=== PATIENT | male | born 1955 | race Caucasian/White ===

== ENCOUNTER 2018-06-24 12:31 | Inpatient (IN) ==
[2018-06-24] MEDS ORDERED: Acetaminophen 650 MG RECTAL SUPP RC PRN (16:08)
[2018-06-24] MEDS ORDERED: Acetaminophen 325 MG TABLET PO PRN (16:14)
[2018-06-24] MEDS: *HR* OxyCODONE Immed Rel 5 MG TABLET PO PRN ×2 (17:13→20:18)
[2018-06-25] MEDS: *HR* OxyCODONE Immed Rel 5 MG TABLET PO PRN ×5 (03:33→21:44)
[2018-06-25] MEDS: Furosemide 20 MG TABLET PO SCH (08:11)
[2018-06-25] MEDS: *HR* LORazepam 0.5 MG TABLET PO PRN ×3 (08:11→17:42)
[2018-06-25] MEDS: predniSONE 5 MG TABLET PO SCH (08:11)
[2018-06-25] MEDS: DALIRESP 500MCG PO SCH (08:12)
[2018-06-25] MEDS: Ipratropium/Albuterol Neb 3 ML IH PRN (08:42)
[2018-06-25] MEDS ORDERED: *HR* Morphine Sulfate SR (12 HR) 60 MG TABLET.ER PO SCH (09:00)
[2018-06-25] MEDS: *HR* Morphine Sulfate SR (12 HR) 30 MG TABLET.ER PO SCH ×2 (10:28→21:44)
[2018-06-25] MEDS: Haloperidol Oral Conc 10 MG/5 ML UDC PO PRN ×3 (12:14→21:44)
[2018-06-25] MEDS: Nicotine 21 MG PATCH.TD24 TD SCH (12:52)
[2018-06-25] MEDS ORDERED: *HR* Morphine Sulfate SR (12 HR) 30 MG TABLET.ER PO SCH (21:00)
[2018-06-26] MEDS: Ipratropium/Albuterol Neb 3 ML IH PRN (07:57)
[2018-06-26] MEDS: predniSONE 5 MG TABLET PO SCH (08:18)
[2018-06-26] MEDS: *HR* OxyCODONE Immed Rel 5 MG TABLET PO PRN ×2 (08:18→12:19)
[2018-06-26] MEDS: Furosemide 20 MG TABLET PO SCH (08:18)
[2018-06-26] MEDS: *HR* Morphine Sulfate SR (12 HR) 30 MG TABLET.ER PO SCH (08:43)
[2018-06-26] MEDS: Haloperidol Oral Conc 10 MG/5 ML UDC PO PRN ×2 (08:44→18:13)
[2018-06-26] MEDS: Nicotine 21 MG PATCH.TD24 TD SCH (08:45)
[2018-06-26] MEDS: DALIRESP 500MCG PO SCH (08:47)
[2018-06-26] MEDS: *HR* LORazepam 0.5 MG TABLET PO PRN ×2 (09:50→18:13)
[2018-06-26] MEDS ORDERED: MORPHINE SUL Oral CONC 10 MG/0.5 ML ORAL.SYG SL PRN (16:32)
[2018-06-26] MEDS ORDERED: *HR* OxyCODONE Oral Soln 5 MG/5 ML UD.LIQ PO PRN (17:50)
[2018-06-27] MEDS: *HR* LORazepam 0.5 MG TABLET PO PRN ×2 (00:25→08:55)
[2018-06-27] MEDS: MORPHINE SUL Oral CONC 10 MG/0.5 ML ORAL.SYG SL PRN ×8 (00:26→21:20)
[2018-06-27] MEDS: Haloperidol Oral Conc 10 MG/5 ML UDC PO PRN ×3 (06:12→17:15)
[2018-06-27] MEDS: Nicotine 21 MG PATCH.TD24 TD SCH (08:48)
[2018-06-27] MEDS: Furosemide 20 MG TABLET PO SCH (08:50)
[2018-06-27] MEDS: DALIRESP 500MCG PO SCH (08:56)
[2018-06-27] MEDS: *HR* LORazepam Oral Conc 2 MG/ML PO PRN ×3 (17:04→21:20)
[2018-06-27] MEDS: *HR* Morphine Sulfate SR (12 HR) 30 MG TABLET.ER PO SCH (17:15)
[2018-06-28] MEDS ORDERED: *HR* Morphine Sulfate SR (12 HR) 30 MG TABLET.ER PO SCH
[2018-06-28] MEDS: *HR* Morphine Sulfate SR (12 HR) 30 MG TABLET.ER PO SCH ×3 (00:55→16:10)
[2018-06-28] MEDS: Haloperidol Oral Conc 10 MG/5 ML UDC PO PRN ×3 (00:55→13:42)
[2018-06-28] MEDS: MORPHINE SUL Oral CONC 10 MG/0.5 ML ORAL.SYG SL PRN ×4 (00:56→20:37)
[2018-06-28] MEDS: *HR* LORazepam Oral Conc 2 MG/ML PO PRN ×3 (06:08→16:15)
[2018-06-28] MEDS: Nicotine 21 MG PATCH.TD24 TD SCH (08:50)
[2018-06-28] MEDS: DALIRESP 500MCG PO SCH (08:56)
[2018-06-28] MEDS: Furosemide 20 MG TABLET PO SCH (08:56)
[2018-06-28] MEDS: Ipratropium/Albuterol Neb 3 ML IH PRN (13:56)
[2018-06-28] MEDS: *HR* LORazepam 1 MG TABLET PO PRN (20:37)
[2018-06-29] MEDS: *HR* LORazepam 1 MG TABLET PO PRN ×4 (00:15→14:16)
[2018-06-29] MEDS: *HR* Morphine Sulfate SR (12 HR) 30 MG TABLET.ER PO SCH ×3 (00:15→15:38)
[2018-06-29] MEDS: MORPHINE SUL Oral CONC 10 MG/0.5 ML ORAL.SYG SL PRN ×3 (06:28→14:16)
[2018-06-29 06:53] VITALS: BP 123/76
[2018-06-29] MEDS: Nicotine 21 MG PATCH.TD24 TD SCH (08:26)
[2018-06-29] MEDS: Furosemide 20 MG TABLET PO SCH (08:33)
[2018-06-29] MEDS: DALIRESP 500MCG PO SCH (08:35)
[2018-06-29] MEDS: Haloperidol Oral Conc 10 MG/5 ML UDC PO PRN (14:16)
[2018-06-29] MEDS: Ipratropium/Albuterol Neb 3 ML IH PRN (16:07)
== END 2018-06-29 16:21 | disposition hospice, home (50) | DRG 951 ==
LOC: INPPIK 15:13
PROVIDERS: ADMIT Internal Medicine; ATTEND Internal Medicine

== ENCOUNTER 2018-07-22 17:42 | Inpatient (IN) ==
[2018-07-22] MEDS: *HR* Morphine Sulfate SR (12 HR) 15 MG TABLET.ER PO SCH (20:24)
[2018-07-22] MEDS: Haloperidol Oral Conc 10 MG/5 ML UDC PO PRN (20:25)
[2018-07-22] MEDS: *HR* LORazepam Oral Conc 2 MG/ML PO PRN (20:25)
[2018-07-22] MEDS ORDERED: Ipratropium/Albuterol Neb 3 ML IH PRN (22:00)
[2018-07-23] MEDS: *HR* LORazepam Oral Conc 2 MG/ML PO PRN ×4 (04:09→20:37)
[2018-07-23] MEDS: Haloperidol Oral Conc 10 MG/5 ML UDC PO PRN ×3 (05:35→18:46)
[2018-07-23] MEDS: MORPHINE SUL Oral CONC 10 MG/0.5 ML ORAL.SYG SL PRN ×5 (06:18→18:46)
[2018-07-23] MEDS ORDERED: *HR* Acetylcysteine 20% 600 MG/3 ML ORAL SYRINGE PO SCH (09:00)
[2018-07-23] MEDS: *HR* Morphine Sulfate SR (12 HR) 15 MG TABLET.ER PO SCH ×2 (09:04→20:36)
[2018-07-23] MEDS: Methylphenidate HCl 5 MG TABLET PO SCH (09:04)
[2018-07-23] MEDS: Furosemide 20 MG TABLET PO SCH (09:05)
[2018-07-24 07:36] VITALS: BP 83/64
[2018-07-24] MEDS: Furosemide 20 MG TABLET PO SCH (08:18)
[2018-07-24] MEDS: *HR* Morphine Sulfate SR (12 HR) 15 MG TABLET.ER PO SCH (08:18)
[2018-07-24] MEDS: Methylphenidate HCl 5 MG TABLET PO SCH (08:19)
[2018-07-24] MEDS: MORPHINE SUL Oral CONC 10 MG/0.5 ML ORAL.SYG SL PRN ×3 (10:57→16:56)
[2018-07-24] MEDS: Haloperidol Oral Conc 10 MG/5 ML UDC PO PRN (10:57)
[2018-07-24] MEDS: *HR* LORazepam Oral Conc 2 MG/ML PO PRN (13:27)
== END 2018-07-24 17:10 | disposition home or self-care (01) | DRG 951 ==
LOC: INPPIK 18:35
PROVIDERS: ADMIT Internal Medicine; ATTEND Internal Medicine